=== PATIENT | female | born 1990 | race Caucasian/White ===

== ENCOUNTER 2023-03-02 11:15 | Emergency (ER) | payer OTHER ==
[~2023-03-02] VITALS: Ht 162.6 cm; Wt 71.8 kg
[2023-03-02] MEDS ORDERED: FLUORESCEIN SODIUM 1 MG STRIP OU ONE (13:30)
[2023-03-02] MEDS ORDERED: PROPARACAINE HCL 0.5% 15 ML OPHTHALMIC SOLUTION OU ONE (13:30)
[2023-03-02 15:52] VITALS: TEMP 98.2
[2023-03-02 16:35] VITALS: BP 98/60; PULSE 72; RESP 16
== END 2023-03-02 16:37 ==
LOC: EMS 11:16
DX: S05.01XA Injury of conjunctiva and corneal abrasion without foreign body, right eye, initial encounter (principal); J45.909 Unspecified asthma, uncomplicated; E03.9 Hypothyroidism, unspecified; X58.XXXA Exposure to other specified factors, initial encounter; Y93.89 Activity, other specified; Y92.89 Other specified places as the place of occurrence of the external cause; Y99.8 Other external cause status
CPT/HCPCS: 99283